=== PATIENT | male | born 1985 | race Caucasian/White ===

== ENCOUNTER 2018-12-12 07:14 | Day surgery (SDC) | payer OTHER ==
[2018-12-12] VITALS (9 sets, daily range): BP systolic 92–111; BP diastolic 55–77; PULSE 55–64; RESP 13–20; Ht 177.8 cm; Wt 91.3 kg
[~2018-12-12] VITALS: Ht 177.8 cm; Wt 91.3 kg
[2018-12-12] MEDS ORDERED: SOD CHLORIDE 0.9% 1,000 ML IV ONE (07:30)
[2018-12-12] MEDS ORDERED: CEFAZOLIN 2 GM/50 ML (PMX) 50 ML IVPB ONE (07:30)
[2018-12-12] MEDS ORDERED: BUPIVACAINE 0.5% (SDV) 30 ML INJ ONE (10:29)
[2018-12-12] MEDS ORDERED: LIDOCAINE 2% (MDV) 20 ML INJ ONE (10:29)
[2018-12-12] MEDS ORDERED: ONDANSETRON 4 MG INJ IV PRN (10:30)
[2018-12-12] MEDS ORDERED: HYDROmorphONE 1 MG/5 ML IV SYRINGE IV PRN ×3 (10:30)
[2018-12-12] MEDS ORDERED: OXYCODONE/ACETAMINOPHEN (5/325) TAB PO PRN (10:30)
[2018-12-12] MEDS ORDERED: MEPERIDINE 25 MG INJ IV PRN (10:30)
[2018-12-12] MEDS ORDERED: hydrALAzine 20 MG INJ IV PRN (10:30)
[2018-12-12] MEDS ORDERED: FENTAnyl 50 MCG/ML VIAL IV PRN ×3 (10:30)
[2018-12-12] MEDS ORDERED: DIPHENHYDRAMINE 50 MG INJ IV PRN (10:30)
[2018-12-12] MEDS ORDERED: EPHEDrine 25 MG/5 ML SYG IV PRN (10:30)
[2018-12-12] MEDS ORDERED: METOCLOPRAMIDE 10 MG INJ IV PRN (10:30)
[2018-12-12] MEDS ORDERED: LABETALOL HCL 20MG INJ IV PRN (10:30)
[2018-12-12] MEDS ORDERED: CEFAZOLIN 1 GM INJ ONE (10:49)
[2018-12-12] MEDS ORDERED: MIDAZOLAM 1 MG/ML 2 ML INJ ONE (10:49)
[2018-12-12] MEDS ORDERED: FENTAnyl 50 MCG/ML VIAL ONE (10:49)
[2018-12-12] MEDS ORDERED: ONDANSETRON 4 MG INJ ONE (11:04)
[2018-12-12] MEDS ORDERED: METOCLOPRAMIDE 10 MG INJ ONE (11:04)
[2018-12-12] MEDS ORDERED: HYDROCODONE/APAP (5/325) TAB PO ONE (11:30)
== END 2018-12-12 12:28 | disposition home or self-care (01) ==
LOC: SDS 07:14
PROVIDERS: ATTEND Surgery
DX: D17.1 Benign lipomatous neoplasm of skin and subcutaneous tissue of trunk (principal)
CPT/HCPCS: 14001; 88307; J0690; J2250; J3010; Z7512; Z7610; J2405; J2765